=== PATIENT | male | born 1980 | race African-American/Black ===

== ENCOUNTER 2018-08-17 00:35 | Emergency (ER) | payer SELFPAY ==
[~2018-08-17] VITALS: Ht 177.8 cm; Wt 90.0 kg
[2018-08-17] MEDS ORDERED: OLANZAPINE 10 MG/VIAL IM ONE ×2 (01:30→03:30)
[2018-08-17] MEDS ORDERED: OLANZAPINE 10MG TABLET PO STA (01:41)
[2018-08-17 04:27] LABS: BASOPHILS % 0.7 % (0.0-2.0); EOSINOPHILS % 2.5 % (0.0-5.0); HEMATOCRIT. 43.7 % (42.0-52.0); HEMOGLOBIN. 14.7 g/dL (14.0-18.0); LYMPHOCYTES % 31.1 % (20.0-50.0); MEAN CORPUSCULAR HEMOGLOBIN 28.7 pg (28.0-32.0); MEAN CORPUSCULAR VOLUME 85.2 fL (80.0-94.0); MONOCYTES % 9.4 % (2.0-8.0); NEUTROPHILS % 56.3 % (40.0-76.0); PLATELET 255 x1000/uL (130-400); RED BLOOD CELL COUNT 5.13 mill/uL (4.7-6.1); RED CELL DISTRIBUTION WIDTH 14.5 % (11.6-14.6)
[2018-08-17 04:42] LABS: CHLORIDE 104 mEq/L (98-107)
[2018-08-17 04:46] LABS: ETHANOL BLOOD < 10 mg/dL
[2018-08-17 05:12] LABS: CLARITY URINE CLOUDY (CLEAR); COLOR URINE DARK YELLOW (YELLOW); KETONES URINE 2+ (NEGATIVE); LEUKOCYTE ESTERASE URINE 2+ (NEGATIVE); NITRITE URINE NEGATIVE (NEGATIVE); OCCULT BLOOD URINE NEGATIVE (NEGATIVE); PROTEIN URINE 1+ (NEGATIVE); SPECIFIC GRAVITY URINE 1.033 (1.005-1.030)
[2018-08-17 05:43] LABS: *AMPHETAMINES SCREEN URINE NEGATIVE (NEGATIVE)
[2018-08-17 05:44] LABS: *BARBITURATES SCREEN URINE NEGATIVE (NEGATIVE); *COCAINE SCREEN URINE NEGATIVE (NEGATIVE); CANNABINOID URINE SCREEN PRESUMTIVE POSITIVE (NEGATIVE); METHADONE URINE SCREEN NEGATIVE (NEGATIVE); OPIATES URINE SCREEN NEGATIVE (NEGATIVE); PHENCYCLIDINE URINE SCREEN PRESUMTIVE POSITIVE (NEGATIVE)
[2018-08-17 05:45] LABS: *BENZODIAZEPINES SCREEN URINE NEGATIVE (NEGATIVE)
[2018-08-17] MEDS ORDERED: QUETIAPINE FUMARATE 100MG TABLET PO STA (12:31)
[2018-08-17 15:47] VITALS: BP 134/76
== END 2018-08-17 15:48 | disposition home or self-care (01) ==
LOC: ER 00:35
DX: F23 Brief psychotic disorder (principal); Z63.79 Other stressful life events affecting family and household
CPT/HCPCS: 36415; 80053; 80305; 80307; 80329; 81003; 85025; 87086; 87186; 96372; 99284; J3490; Z7610